=== PATIENT | male | born 1960 | race Caucasian/White ===

== ENCOUNTER 2019-01-30 21:40 | Observation (INO) ==
[2019-01-30 22:18] VITALS: BMI 26.2
--- NOTE | 2019-01-30 22:55 | DR.EXTPAIN ---
HPI Time seen Time Seen by Provider: 01/30/19 22:54 PCP Primary Care Physician: TOOTIE BAUM Complaint/Symptoms Chief Complaint:: " I FELL LASTNIGHT AND IT WAS SURE BUT TODAY IT HAS GOTTEN WORST IM NOT SURE IF I HAVE BROKE SOME RIBS OR WHAT. IM HAVING PAIN IN MY RIGHT RIB AREA." Source History Provided: Patient Mode of arrival Mode of Arrival: Wheelchair Timing Onset of Chief Complaint: 01/29/19 PMH PMH Past Medical History: Yes Past Medical History: CVA, Hypertension and [place] Past Surgical History: Yes Surgical History: CABG/Valve Surgery Past Surgical History Comment: STENTS X2 Family History History of Family Medical Conditions: No Social History Alcohol Use: None Do you use any recreational Drugs:: No infectious screening Have you traveled outside the country in the last 6 months?: No PE Vital Signs Vitals: Temperature 97.1 F Pulse Rate 78 Respiratory Rate 9 Blood Pressure 161/90 O2 Sat by Pulse Oximetry 93 ROR Labs Reviewed Result Diagrams: 01/30/19 22:45 01/30/19 22:45 Laboratory: WBC 9.8 X10^3/uL (3.6-10.0) 01/30/19 22:45 RBC 5.48 X10^6/uL (4.7-6.0) 01/30/19 22:45 Hgb 17.4 g/dL (13.5-18.0) 01/30/19 22:45 Hct 49.9 % (42.0-54.0) 01/30/19 22:45 MCV 91.1 fL (80.0-100.0) 01/30/19 22:45 MCH 31.8 pg (27.0-34.0) 01/30/19 22:45 MCHC 34.9 g/dL (33.0-35.0) 01/30/19 22:45 RDW 14.3 % (11.6-16.5) 01/30/19 22:45 Plt Count 176 X10^3/uL (150.0-450.0) 01/30/19 22:45 MPV 8.3 fL (7.4-11.0) 01/30/19 22:45 Neut % (Auto) 74.5 % (42.0-75.0) 01/30/19 22:45 Lymph % (Auto) 14.2 % (21.0-51.0) L 01/30/19 22:45 [place] % (Auto) 10.0 % (0.0-13.0) 01/30/19 22:45 Eos % (Auto) 1.0 % (0.9-2.9) 01/30/19 22:45 Baso % (Auto) 0.3 % (0.2-1.0) 01/30/19 22:45 Neut # (Auto) 7.3 x10^3/uL (2.2-4.8) H 01/30/19 22:45 Lymph # (Auto) 1.4 X10^3/uL (1.3-2.9) 01/30/19 22:45 [place] # (Auto) 1.0 x10^3/uL (0.3-0.8) H 01/30/19 22:45 Eos # (Auto) 0.1 x10^3/uL (0.0-0.2) 01/30/19 22:45 Baso # (Auto) 0.0 X10^3/uL (0.0-0.1) 01/30/19 22:45 Absolute Nucleated RBC 0.2 /100WBC 01/30/19 22:45 Sodium 139 mmol/L (136-145) 01/30/19 22:45 Corrected Sodium 139 mmol/L (136-145) 01/30/19 22:45 Potassium 4.0 mmol/L (3.5-5.1) 01/30/19 22:45 Chloride 103 mmol/L (98-107) 01/30/19 22:45 Carbon Dioxide 28.5 mmol/L (21-32) 01/30/19 22:45 BUN 8 mg/dL (7-18) 01/30/19 22:45 Creatinine 1.01 mg/dL (0.70-1.30) 01/30/19 22:45 Est GFR (MDRD) Af Amer > 60 (>60) 01/30/19 22:45 Est GFR (MDRD) Non-Af > 60 (>60) 01/30/19 22:45 Glucose 116 mg/dL (65-99) H 01/30/19 22:45 Calcium 9.5 mg/dL (8.5-10.1) 01/30/19 22:45 Corrected Calcium TNP 01/30/19 22:45 Total Bilirubin 0.70 mg/dL (0.2-1.0) 01/30/19 22:45 AST 17 Units/L (15-37) 01/30/19 22:45 ALT 23 Units/L (12-78) 01/30/19 22:45 Alkaline Phosphatase 120 Units/L (46-116) H 01/30/19 22:45 Creatine Kinase 117 Units/L (39-308) 01/30/19 22:45 CK-MB (CK-2) 1.4 ng/mL (0-4.0) 01/30/19 22:45 CK/CKMB % Calc 1.2 % (<4) 01/30/19 22:45 Troponin I < 0.02 ng/mL (0-1.5) 01/30/19 22:45 Total Protein 7.9 g/dL (6.4-8.2) 01/30/19 22:45 Albumin 4.2 g/dL (3.4-5.0) 01/30/19 22:45 Globulin 3.7 g/dL (2.5-4.5) 01/30/19 22:45 Albumin/Globulin Ratio 1.1 Ratio (1.1-2.1) 01/30/19 22:45 Opioid Opioid Risk Tool Total: 0 Total Score Risk Category: Low Risk Copyright: Dez ROQUE predicting aberrant behaviors Instructions Forms: Excuse From Work
[2019-01-30] MEDS ORDERED: MORPHINE SULFATE INJ 4 MG IVP ONE (22:57)
[2019-01-30] MEDS ORDERED: ZOFRAN INJ 4 MG VIAL IVP ONE (22:57)
[2019-01-30 23:06] LABS: BASOPHILS % (AUTO) 0.3 % (0.2-1.0); EOSINOPHILS # (AUTO) 0.1 x10^3/uL (0.0-0.2); HEMATOCRIT 49.9 % (42.0-54.0); HEMOGLOBIN 17.4 g/dL (13.5-18.0); LYMPHOCYTES # (AUTO) 1.4 X10^3/uL (1.3-2.9); LYMPHOCYTES % (AUTO) 14.2 % (21.0-51.0); MEAN CORPUSCULAR HEMOGLOBIN 31.8 pg (27.0-34.0); MEAN CORPUSCULAR HGB CONC 34.9 g/dL (33.0-35.0); MEAN CORPUSCULAR VOLUME 91.1 fL (80.0-100.0); MEAN PLATELET VOLUME 8.3 fL (7.4-11.0); NEUTROPHILS # (AUTO) 7.3 x10^3/uL (2.2-4.8); NEUTROPHILS % (AUTO) 74.5 % (42.0-75.0); PLATELET COUNT 176 X10^3/uL (150.0-450.0); RED BLOOD COUNT 5.48 X10^6/uL (4.7-6.0); RED CELL DISTRIBUTION WIDTH 14.3 % (11.6-16.5); WHITE BLOOD COUNT 9.8 X10^3/uL (3.6-10.0)
[2019-01-30] MEDS ORDERED: NS 100 ML IV 100 ML ONE (23:07)
[2019-01-30] MEDS ORDERED: ZOFRAN INJ 4 MG VIAL ONE (23:08)
[2019-01-30] MEDS ORDERED: MORPHINE SULFATE INJ 4 MG ONE (23:09)
[2019-01-30 23:19] LABS: BLOOD UREA NITROGEN 8 mg/dL (7-18); CALCIUM 9.5 mg/dL (8.5-10.1); CARBON DIOXIDE 28.5 mmol/L (21-32); CHLORIDE 103 mmol/L (98-107); COR NA(FOR HYPERGLY) 139 mmol/L (136-145); CREATININE 1.01 mg/dL (0.70-1.30); SODIUM 139 mmol/L (136-145); TROPONIN I < 0.02 ng/mL (0-1.5); eGFR NON BLACK RACES > 60 (>60)
[2019-01-30 23:23] LABS: ALANINE AMINOTRANSFERASE 23 Units/L (12-78); ALBUMIN 4.2 g/dL (3.4-5.0); ALKALINE PHOSPHATASE 120 Units/L (46-116); ASPARTATE AMINO TRANSFERASE 17 Units/L (15-37); CKMB % 1.2 % (<4); CREATINE KINASE 117 Units/L (39-308); CREATINE KINASE MB 1.4 ng/mL (0-4.0); TOTAL PROTEIN 7.9 g/dL (6.4-8.2)
--- NOTE | 2019-01-31 00:25 | CT ---
CT chest with contrast. Technique: CT chest with contrast. Axial, coronal, and sagittal data sets are submitted. History: Chest pain. Comparison: None. Findings: The thoracic aorta is normal in caliber. 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 The bilateral single renal arteries and the celiac and SMA are widely patent. The great vessels are also patent. There is no central or segmental filling defect within the pulmonary arteries to suggest significant pulmonary embolus. Heart is not enlarged. No pericardial effusion. Visualized portions of the upper abdomen otherwise unremarkable. There is a moderate right-sided pneumothorax. Mildly displaced right 6th and 7th rib fractures are present. There is subcutaneous gas adjacent to the fractures. The lungs are clear of focal consolidation. No pneumothorax on the left. No pleural effusion is seen. DISH like changes are present within the thoracic spine. Conclusion: 1. Occlusion of the infrarenal abdominal aorta just below the level of the renal arteries, of uncertain chronicity. 2. Moderate right-sided pneumothorax related to a mildly displaced right 6th and 7th rib fractures. 3. Additional incidental and chronic findings, as above. Findings were discussed with Dr. Blas by phone within 15 min of observation on 01/30/2019 at 11:24 p.m. DIETITIAN RESEARCH. Reported By:
[2019-01-31] MEDS ORDERED: CATAPRES TAB 0.2 MG ONE (00:32)
[2019-01-31] MEDS ORDERED: CATAPRES TAB 0.2 MG PO ONE (00:35)
--- NOTE | 2019-01-31 00:44 | RAD ---
Examination: Chest, one view. History: Fall, rib pain. Comparison: None. Findings: There is a moderate right pneumothorax. Displaced right 6th and 7th rib fractures are better seen on concurrent CT. Lungs are clear of consolidation. There is no tension component. No acute osseous findings identified. Conclusion: Moderate right pneumothorax without tension component. Critical findings were reported to Dr. Blas by phone. Please see CT exam for details. Reported By:
[2019-01-31] MEDS ORDERED: DILAUDID INJ IVP ONE (01:29)
[2019-01-31] MEDS ORDERED: DILAUDID INJ ONE (01:40)
[2019-01-31 05:51] LABS: BASOPHILS % (AUTO) 0.2 % (0.2-1.0); EOSINOPHILS % (AUTO) 0.2 % (0.9-2.9); HEMATOCRIT 48.3 % (42.0-54.0); HEMOGLOBIN 16.9 g/dL (13.5-18.0); LYMPHOCYTES # (AUTO) 1.3 X10^3/uL (1.3-2.9); LYMPHOCYTES % (AUTO) 13.8 % (21.0-51.0); MEAN CORPUSCULAR HEMOGLOBIN 32.1 pg (27.0-34.0); MEAN CORPUSCULAR VOLUME 91.8 fL (80.0-100.0); MEAN PLATELET VOLUME 8.5 fL (7.4-11.0); MONOCYTES # (AUTO) 0.9 x10^3/uL (0.3-0.8); MONOCYTES % (AUTO) 9.4 % (0.0-13.0); NEUTROPHILS # (AUTO) 7.1 x10^3/uL (2.2-4.8); NEUTROPHILS % (AUTO) 76.4 % (42.0-75.0); PLATELET COUNT 169 X10^3/uL (150.0-450.0); RED BLOOD COUNT 5.27 X10^6/uL (4.7-6.0); RED CELL DISTRIBUTION WIDTH 14.4 % (11.6-16.5); WHITE BLOOD COUNT 9.3 X10^3/uL (3.6-10.0)
[2019-01-31 06:04] LABS: ALANINE AMINOTRANSFERASE 22 Units/L (12-78); ALBUMIN 3.8 g/dL (3.4-5.0); ALKALINE PHOSPHATASE 115 Units/L (46-116); ASPARTATE AMINO TRANSFERASE 17 Units/L (15-37); BLOOD UREA NITROGEN 6 mg/dL (7-18); CARBON DIOXIDE 27.8 mmol/L (21-32); CHLORIDE 105 mmol/L (98-107); CHOLESTEROL 166 mg/dL (0-200); COR NA(FOR HYPERGLY) 140 mmol/L (136-145); CREATININE 0.89 mg/dL (0.70-1.30); HDL CHOLESTEROL 42 mg/dL (40-60); MAGNESIUM 2.2 mg/dL (1.7-2.9); SODIUM 140 mmol/L (136-145); TOTAL PROTEIN 7.5 g/dL (6.4-8.2); TRIGLYCERIDES 55 mg/dL (0-150); eGFR NON BLACK RACES > 60 (>60)
[2019-01-31 06:21] LABS: CKMB % 1.2 % (<4); CREATINE KINASE 102 Units/L (39-308); CREATINE KINASE MB 1.2 ng/mL (0-4.0); TROPONIN I < 0.02 ng/mL (0-1.5)
[2019-01-31] MEDS: DUONEB 0.5 MG/3 MG NEB SCH ×4 (09:17→21:01)
--- NOTE | 2019-01-31 10:39 | DR.H&P ---
H&P - Chief Complaint Chief Complaint: fall, right side chest pain, sob - History of Present Illness History of Present Illness: 58 [facility] ER ADMISSION AFTER PRESENTING WITH CO FALL ON FRIDAY NIGHT WITH RIGHT RIB INJURY. PT HAS STATES PAIN MUCH WORSE YESTERDAY. PT HAS PMH OF HTN, CAD. PT HAD CT CHEST IN ER WITH -Moderate right-sided pneumothorax related to a mildly displaced right 6th and 7th rib fractures. PT ADMITTED TO ICU, PAIN CONTROL, SURGICAL CONSULT. - Past Medical History Past Medical History: Coronary Artery Disease, CVA, Hypertension, [place] - Past Surgical History Surgical History: Angioplasty/Stents, Ortho Surgery - Family History Family Medical History: [place], Hypertension - Social History Does patient currently use any type of tobacco product: Yes Have you used tobacco products in the last 12 months: Yes Type of Tobacco Use: Cigarettes How many years tobacco product used: 25 Does any household member use tobacco: Yes Alcohol Use: Occasionally Drug Use: None - Medications Home Medications: gabapentin Allergy (Verified 01/30/19 22:18) - Review of Systems Constitutional: No Symptoms Reported Eyes: No Symptoms Reported ENT: No Symptoms Reported Respiratory: Shortness of Breath, SOB with Excertion Cardiovascular: Chest Pain Gastrointestinal: No Symptoms Reported Genitourinary: No Symptoms Reported Musculoskeletal: Back Pain, Other (RIGHT RIB PAIN) Skin: No Symptoms Reported Neurological: No Symptoms Reported - Physical Exam Vital Signs: Temperature 97.2 F Pulse Rate [Brachial] 85 Pulse Rate 85 Respiratory Rate 15 Blood Pressure [Right Arm] 135/71 Blood Pressure 128/78 O2 Sat by Pulse Oximetry 2 Oriented: Normal Eyes: Normal Ear: Normal Nose: Normal Throat: Normal Respiratory: Wheezes Throughout (EXPIRATORY WHEEZES), RML Diminished, RLL Diminished, LLL Diminished Cardiovascular: Normal : Normal Auscultation: Bowel Sounds: Normal Palpation: Normal Tenderness: Normal Skin: Normal Musculoskeletal: Right, Back:Lumbar, Swelling, Tender Psychiatric: Normal Speech Pattern: Clear, Appropriate - Assessment/Plan (1) Closed traumatic displaced fracture of rib Status: Acute Plan: ADMIT, PAIN CONTROL. SUPPLEMENTAL O2, RESP CONSULT. DR BURNS CONSULTED, REPEAT AM CXR. VERIFY HOME MEDICATION, IV HYDRATION. CARDIAC MO NITORING (2) Pneumothorax Status: Acute (3) CAD (coronary artery disease) Status: Acute (4) Spine degeneration Status: Acute - Allergies Allergies/Adverse Reactions: Allergies Allergy/AdvReac Type Severity Reaction Status Date / Time gabapentin Allergy Verified 01/30/19 22:18
[2019-01-31] MEDS: DILAUDID INJ IVP PRN ×2 (10:40→20:41)
[2019-01-31 11:47] LABS: CKMB % 1.4 % (<4); CREATINE KINASE 94 Units/L (39-308); CREATINE KINASE MB 1.3 ng/mL (0-4.0); TROPONIN I < 0.02 ng/mL (0-1.5)
--- NOTE | 2019-01-31 12:08 | DR.PROGNOT ---
Hospital Progress Notes - Progress Note for Day of: Progress Note Date: 01/31/19 - Chief Complaint Chief Complaint: moderate SOB and Rt chest pain from rib Fx . no abdominal pain . stable VS . - Past Medical Family Social History Past Med/Fam/Surg Hx: No changes since H&P Allergies: Allergies gabapentin Allergy (Verified 01/30/19 22:18) - Review Of Systems ROS: No change since H&P - Vital Signs Vital Signs: Temperature 97.2 F Pulse Rate [Brachial] 79 Pulse Rate 91 Respiratory Rate 14 Blood Pressure [Right Arm] 121/68 Blood Pressure 121/68 O2 Sat by Pulse Oximetry 3 - Physical Exam Oriented: Normal Eyes: Normal Ear: Normal Nose: Normal Throat: Normal Respiratory: OTHER (very tender rt chest wall with diminished BS on Rt and bilateral rhonchi and mild wheezing .) Cardiovascular: Normal : Normal GI:Auscultation: Normal GI:Palpation: Normal GI: Tenderness: Normal, Other (soft abdomen , non tender . very weak Rt femoral pulse . positive signal only with doppler .) Skin: Normal Musculoskeletal: Back:Lumbar, Swelling Psychiatric: Normal Speech Pattern: Clear, Appropriate - Laboratory and Diagnostics Result Diagrams: 01/31/19 05:18 01/31/19 05:18 Labs: Laboratory WBC 9.3 X10^3/uL (3.6-10.0) 01/31/19 05:18 RBC 5.27 X10^6/uL (4.7-6.0) 01/31/19 05:18 Hgb 16.9 g/dL (13.5-18.0) 01/31/19 05:18 Hct 48.3 % (42.0-54.0) 01/31/19 05:18 MCV 91.8 fL (80.0-100.0) 01/31/19 05:18 MCH 32.1 pg (27.0-34.0) 01/31/19 05:18 MCHC 35.0 g/dL (33.0-35.0) 01/31/19 05:18 RDW 14.4 % (11.6-16.5) 01/31/19 05:18 Plt Count 169 X10^3/uL (150.0-450.0) 01/31/19 05:18 MPV 8.5 fL (7.4-11.0) 01/31/19 05:18 Neut % (Auto) 76.4 % (42.0-75.0) H 01/31/19 05:18 Lymph % (Auto) 13.8 % (21.0-51.0) L 01/31/19 05:18 [place] % (Auto) 9.4 % (0.0-13.0) 01/31/19 05:18 Eos % (Auto) 0.2 % (0.9-2.9) L 01/31/19 05:18 Baso % (Auto) 0.2 % (0.2-1.0) 01/31/19 05:18 Neut # (Auto) 7.1 x10^3/uL (2.2-4.8) H 01/31/19 05:18 Lymph # (Auto) 1.3 X10^3/uL (1.3-2.9) 01/31/19 05:18 [place] # (Auto) 0.9 x10^3/uL (0.3-0.8) H 01/31/19 05:18 Eos # (Auto) 0.0 x10^3/uL (0.0-0.2) 01/31/19 05:18 Baso # (Auto) 0.0 X10^3/uL (0.0-0.1) 01/31/19 05:18 Absolute Nucleated RBC 0.0 /100WBC 01/31/19 05:18 Sodium 140 mmol/L (136-145) 01/31/19 05:18 Corrected Sodium 140 mmol/L (136-145) 01/31/19 05:18 Potassium 4.4 mmol/L (3.5-5.1) 01/31/19 05:18 Chloride 105 mmol/L (98-107) 01/31/19 05:18 Carbon Dioxide 27.8 mmol/L (21-32) 01/31/19 05:18 BUN 6 mg/dL (7-18) L 01/31/19 05:18 Creatinine 0.89 mg/dL (0.70-1.30) 01/31/19 05:18 Est GFR (MDRD) Af Amer > 60 (>60) 01/31/19 05:18 Est GFR (MDRD) Non-Af > 60 (>60) 01/31/19 05:18 Glucose 112 mg/dL (65-99) H 01/31/19 05:18 Calcium 9.0 mg/dL (8.5-10.1) 01/31/19 05:18 Corrected Calcium TNP 01/31/19 05:18 Magnesium 2.2 mg/dL (1.7-2.9) 01/31/19 05:18 Total Bilirubin 0.60 mg/dL (0.2-1.0) 01/31/19 05:18 AST 17 Units/L (15-37) 01/31/19 05:18 ALT 22 Units/L (12-78) 01/31/19 05:18 Alkaline Phosphatase 115 Units/L (46-116) 01/31/19 05:18 Creatine Kinase 94 Units/L (39-308) 01/31/19 11:20 CK-MB (CK-2) 1.3 ng/mL (0-4.0) 01/31/19 11:20 CK/CKMB % Calc 1.4 % (<4) 01/31/19 11:20 Troponin I < 0.02 ng/mL (0-1.5) 01/31/19 11:20 Total Protein 7.5 g/dL (6.4-8.2) 01/31/19 05:18 Albumin 3.8 g/dL (3.4-5.0) 01/31/19 05:18 Globulin 3.7 g/dL (2.5-4.5) 01/31/19 05:18 Albumin/Globulin Ratio 1.0 Ratio (1.1-2.1) L 01/31/19 05:18 Triglycerides 55 mg/dL (0-150) 01/31/19 05:18 Cholesterol 166 mg/dL (0-200) 01/31/19 05:18 LDL Cholesterol, Calc 113 mg/dL (0-100) H 01/31/19 05:18 HDL Cholesterol 42 mg/dL (40-60) 01/31/19 05:18 Cholesterol/HDL Ratio 4.0 (0.0-5.0) 01/31/19 05:18 - Assessment and Plan 1: blunt trauma Rt chest with 6th and 7th rib Fx . Rt pneumothorax . CAD and previous [place] s/p stenting . chronic back pain with degenerative disc disease . smoker . same plan , repeat chest xray , pain control . chest tube if needed . 2: PVD and intermittent claudication . 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
[2019-01-31] MEDS ORDERED: NS 500 ML IV 500 ML ONE (12:55)
[2019-01-31] MEDS: LOVENOX INJ 40 MG SYR SC SCH (13:21)
[2019-01-31] MEDS: LEVAQUIN PREMIX IV 500 MG 500 MG/100 ML BAG IV SCH (13:22)
--- NOTE | 2019-01-31 14:18 | RAD ---
HISTORY: Fall, rib pain Study: Single-view chest Comparison: Yesterday Findings: The trachea is midline. The cardiac silhouette is unremarkable. The lungs demonstrate enlarging right-sided pneumothorax with no shift of the mediastinum at this time. Subcutaneous emphysema is also noted.. The bony thorax is unremarkable. IMPRESSION: 1. Enlarging [id number] pneumothorax as above. Surgical consultation and chest tube placement may be needed.. Reported By:
[2019-01-31 15:09] LABS: BILIRUBIN,URINE NEGATIVE (NEGATIVE); BLOOD/HEMOGLOBIN,URINE NEGATIVE (NEGATIVE); GLUCOSE, URINE NEGATIVE (NEGATIVE); KETONES,URINE NEGATIVE (NEGATIVE); LEUKOCYTE ESTERASE ,URINE 1+ (NEGATIVE); NITRITES,URINE NEGATIVE (NEGATIVE); PROTEIN,URINE 2+ (NEGATIVE); UROBILINOGEN,URINE 1+ (NORMAL)
[2019-01-31 15:21] LABS: APPEARANCE,URINE CLEAR (CLEAR); COLOR,URINE YELLOW (YELLOW)
[2019-01-31 15:25] LABS: AMORPHOUS SEDIMENT,UR TRACE /HPF (NEGATIVE); BACTERIA,URINE NEGATIVE /HPF (NEGATIVE); MUCUS,URINE MODERATE /HPF (NEGATIVE); RBC,URINE 0-2 /HPF (NONE SEEN); SQUAMOUS EPITHELIAL CELL,UR RARE /HPF (NEGATIVE)
[2019-02-01] MEDS: DILAUDID INJ IVP PRN ×5 (00:12→22:49)
[2019-02-01] MEDS: DUONEB 0.5 MG/3 MG NEB SCH ×6 (01:05→21:18)
[2019-02-01 04:55] LABS: BASOPHILS % (AUTO) 0.2 % (0.2-1.0); EOSINOPHILS # (AUTO) 0.1 x10^3/uL (0.0-0.2); EOSINOPHILS % (AUTO) 1.3 % (0.9-2.9); HEMATOCRIT 45.1 % (42.0-54.0); HEMOGLOBIN 15.4 g/dL (13.5-18.0); LYMPHOCYTES # (AUTO) 1.6 X10^3/uL (1.3-2.9); LYMPHOCYTES % (AUTO) 20.2 % (21.0-51.0); MEAN CORPUSCULAR HEMOGLOBIN 31.6 pg (27.0-34.0); MEAN CORPUSCULAR HGB CONC 34.1 g/dL (33.0-35.0); MEAN CORPUSCULAR VOLUME 92.6 fL (80.0-100.0); MEAN PLATELET VOLUME 8.4 fL (7.4-11.0); MONOCYTES # (AUTO) 0.8 x10^3/uL (0.3-0.8); MONOCYTES % (AUTO) 9.7 % (0.0-13.0); NEUTROPHILS # (AUTO) 5.3 x10^3/uL (2.2-4.8); NEUTROPHILS % (AUTO) 68.6 % (42.0-75.0); PLATELET COUNT 156 X10^3/uL (150.0-450.0); RED BLOOD COUNT 4.87 X10^6/uL (4.7-6.0); RED CELL DISTRIBUTION WIDTH 14.2 % (11.6-16.5); WHITE BLOOD COUNT 7.8 X10^3/uL (3.6-10.0)
[2019-02-01 05:05] LABS: ALANINE AMINOTRANSFERASE 18 Units/L (12-78); ALBUMIN 3.2 g/dL (3.4-5.0); ALKALINE PHOSPHATASE 99 Units/L (46-116); ASPARTATE AMINO TRANSFERASE 11 Units/L (15-37); BLOOD UREA NITROGEN 7 mg/dL (7-18); CALCIUM 8.9 mg/dL (8.5-10.1); CARBON DIOXIDE 32.1 mmol/L (21-32); CHLORIDE 102 mmol/L (98-107); COR CA(FOR HYPOALB) 9.5 mg/dL (8.5-10.1); CREATININE 0.98 mg/dL (0.70-1.30); SODIUM 138 mmol/L (136-145); TOTAL PROTEIN 6.6 g/dL (6.4-8.2); eGFR NON BLACK RACES > 60 (>60)
--- NOTE | 2019-02-01 05:41 | RAD ---
Chest radiograph, single view. History: Pneumothorax. Comparison: 01/31/2019 radiograph. Findings: Moderate to large right pneumothorax is stable in size from prior examination. There is no shift of the mediastinum at this time. Subcutaneous emphysema is again noted. No new lung consolidation. No pleural effusion is seen. Right-sided 4th and 5th rib fractures are better seen on prior CT. Conclusion: Stable moderate to large right pneumothorax. No tension component detected at this time. Recommendations of surgical consultation and chest tube placement are unchanged. Reported By:
[2019-02-01] MEDS: LEVAQUIN PREMIX IV 500 MG 500 MG/100 ML BAG IV SCH (08:38)
[2019-02-01] MEDS: LOVENOX INJ 40 MG SYR SC SCH (08:43)
--- NOTE | 2019-02-01 11:26 | DR.PROGNOT ---
Hospital Progress Notes - Progress Note for Day of: Progress Note Date: 02/01/19 - Chief Complaint Chief Complaint: Rt chest pain from rib Fx .no SOB. no abdominal pain . stable VS . chest xray same as yesterday . - Past Medical Family Social History Past Med/Fam/Surg Hx: No changes since H&P Allergies: Allergies gabapentin Allergy (Verified 01/30/19 22:18) - Review Of Systems ROS: No change since H&P - Vital Signs Vital Signs: Temperature 98.2 F Pulse Rate [Brachial] 79 Pulse Rate 97 Respiratory Rate 14 Blood Pressure [Right Arm] 121/68 Blood Pressure 125/59 O2 Sat by Pulse Oximetry 98 - Physical Exam Oriented: Normal Eyes: Normal Ear: Normal Nose: Normal Throat: Normal Respiratory: OTHER (very tender rt chest wall with diminished BS on Rt and bilateral rhonchi and mild wheezing .) Cardiovascular: Normal : Normal GI:Auscultation: Normal GI:Palpation: Normal GI: Tenderness: Normal, Other (soft abdomen , non tender . very weak Rt femoral pulse . positive signal only with doppler .) Skin: Normal Musculoskeletal: Back:Lumbar, Swelling Psychiatric: Normal Speech Pattern: Clear, Appropriate - Laboratory and Diagnostics Result Diagrams: 02/01/19 04:18 02/01/19 04:18 Labs: Laboratory WBC 7.8 X10^3/uL (3.6-10.0) 02/01/19 04:18 RBC 4.87 X10^6/uL (4.7-6.0) 02/01/19 04:18 Hgb 15.4 g/dL (13.5-18.0) 02/01/19 04:18 Hct 45.1 % (42.0-54.0) 02/01/19 04:18 MCV 92.6 fL (80.0-100.0) 02/01/19 04:18 MCH 31.6 pg (27.0-34.0) 02/01/19 04:18 MCHC 34.1 g/dL (33.0-35.0) 02/01/19 04:18 RDW 14.2 % (11.6-16.5) 02/01/19 04:18 Plt Count 156 X10^3/uL (150.0-450.0) 02/01/19 04:18 MPV 8.4 fL (7.4-11.0) 02/01/19 04:18 Neut % (Auto) 68.6 % (42.0-75.0) 02/01/19 04:18 Lymph % (Auto) 20.2 % (21.0-51.0) L 02/01/19 04:18 [place] % (Auto) 9.7 % (0.0-13.0) 02/01/19 04:18 Eos % (Auto) 1.3 % (0.9-2.9) 02/01/19 04:18 Baso % (Auto) 0.2 % (0.2-1.0) 02/01/19 04:18 Neut # (Auto) 5.3 x10^3/uL (2.2-4.8) H 02/01/19 04:18 Lymph # (Auto) 1.6 X10^3/uL (1.3-2.9) 02/01/19 04:18 [place] # (Auto) 0.8 x10^3/uL (0.3-0.8) 02/01/19 04:18 Eos # (Auto) 0.1 x10^3/uL (0.0-0.2) 02/01/19 04:18 Baso # (Auto) 0.0 X10^3/uL (0.0-0.1) 02/01/19 04:18 Absolute Nucleated RBC 0.0 /100WBC 02/01/19 04:18 Sodium 138 mmol/L (136-145) 02/01/19 04:18 Corrected Sodium TNP 02/01/19 04:18 Potassium 4.2 mmol/L (3.5-5.1) 02/01/19 04:18 Chloride 102 mmol/L (98-107) 02/01/19 04:18 Carbon Dioxide 32.1 mmol/L (21-32) H 02/01/19 04:18 BUN 7 mg/dL (7-18) 02/01/19 04:18 Creatinine 0.98 mg/dL (0.70-1.30) 02/01/19 04:18 Est GFR (MDRD) Af Amer > 60 (>60) 02/01/19 04:18 Est GFR (MDRD) Non-Af > 60 (>60) 02/01/19 04:18 Glucose 98 mg/dL (65-99) 02/01/19 04:18 Calcium 8.9 mg/dL (8.5-10.1) 02/01/19 04:18 Corrected Calcium 9.5 mg/dL (8.5-10.1) 02/01/19 04:18 Magnesium 2.2 mg/dL (1.7-2.9) 01/31/19 05:18 Total Bilirubin 0.70 mg/dL (0.2-1.0) 02/01/19 04:18 AST 11 Units/L (15-37) L 02/01/19 04:18 ALT 18 Units/L (12-78) 02/01/19 04:18 Alkaline Phosphatase 99 Units/L (46-116) 02/01/19 04:18 Creatine Kinase 94 Units/L (39-308) 01/31/19 11:20 CK-MB (CK-2) 1.3 ng/mL (0-4.0) 01/31/19 11:20 CK/CKMB % Calc 1.4 % (<4) 01/31/19 11:20 Troponin I < 0.02 ng/mL (0-1.5) 01/31/19 11:20 Total Protein 6.6 g/dL (6.4-8.2) 02/01/19 04:18 Albumin 3.2 g/dL (3.4-5.0) L 02/01/19 04:18 Globulin 3.4 g/dL (2.5-4.5) 02/01/19 04:18 Albumin/Globulin Ratio 0.9 Ratio (1.1-2.1) L 02/01/19 04:18 Triglycerides 55 mg/dL (0-150) 01/31/19 05:18 Cholesterol 166 mg/dL (0-200) 01/31/19 05:18 LDL Cholesterol, Calc 113 mg/dL (0-100) H 01/31/19 05:18 HDL Cholesterol 42 mg/dL (40-60) 01/31/19 05:18 Cholesterol/HDL Ratio 4.0 (0.0-5.0) 01/31/19 05:18 Specimen Type Random urine 01/31/19 14:51 Urine Color Yellow (YELLOW) 01/31/19 14:51 Urine Appearance Clear (CLEAR) 01/31/19 14:51 Urine pH 5.0 (5.0 - 8.0) 01/31/19 14:51 Ur Specific [place] 1.020 (1.000-1.030) 01/31/19 14:51 Urine Protein 2+ (NEGATIVE) 01/31/19 14:51 Urine Glucose (UA) Negative (NEGATIVE) 01/31/19 14:51 Urine Ketones Negative (NEGATIVE) 01/31/19 14:51 Urine Occult Blood Negative (NEGATIVE) 01/31/19 14:51 Urine Nitrite Negative (NEGATIVE) 01/31/19 14:51 Urine Bilirubin Negative (NEGATIVE) 01/31/19 14:51 Urine Urobilinogen 1+ (NORMAL) 01/31/19 14:51 Ur Leukocyte Esterase 1+ (NEGATIVE) 01/31/19 14:51 Urine RBC 0-2 /HPF (NONE SEEN) 01/31/19 14:51 Urine WBC None seen /HPF (NONE SEEN) 01/31/19 14:51 Ur Squamous Epith Cells Rare /HPF (NEGATIVE) 01/31/19 14:51 Amorphous Sediment Trace /HPF (NEGATIVE) 01/31/19 14:51 Urine Bacteria Negative /HPF (NEGATIVE) 01/31/19 14:51 Urine Mucus Moderate /HPF (NEGATIVE) 01/31/19 14:51 Ur Culture Indicated? No/not indicated 01/31/19 14:51 - Assessment and Plan 1: blunt trauma Rt chest with two rib Fx. Rt pneumothorax . CAD and previous [place] s/p stenting . chronic back pain with degenerative disc disease . 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 smoker . same plan , repeat chest xray , pain control . chest tube if needed . 2: PVD and intermittent claudication . 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
[2019-02-01 14:18] LABS: ABG ALLEN TEST POS; ABG BASE EXCESS 4.3 mmol/L (-2.0-2.0); ABG HCO3 29.8 mmol/L (22-26)
[2019-02-01] MEDS: ZOFRAN INJ 4 MG VIAL IVP PRN ×2 (14:44→22:51)
--- NOTE | 2019-02-01 16:43 | CT ---
HISTORY: Lower back pain after fall Study: CT lumbar spine without contrast Comparison: Chest CT 01/30/2019 Technique: Multiple axial images of the lumbar spine without the administration of IV contrast. Sagittal and coronal reformats were performed and reviewed. Dose reduction techniques including Automated Exposure Control (AEC) and adjustment of mA and kV were utilized. Findings: Alignment of the lumbar spine is maintained. No evidence for acute fracture or subluxation identified. Small Schmorl's nodes are seen at the superior endplate of T12, inferior endplate of L1 without evidence of compression fracture. There is a limbus vertebra at the superior anterior endplate of L5. Multilevel spondylosis is present with disc space narrowing at L1-L2. There are mild facet degenerative changes at L4-5 and L5-S1 without listhesis. Redemonstrated right pneumothorax and pleural effusion with subcutaneous gas in the posterior right chest wall. IMPRESSION: 1. No acute osseous abnormality of the lumbar spine. 2. Redemonstrated right hydropneumothorax. Reported By:
--- NOTE | 2019-02-01 17:26 | PCM.PROG ---
Progress Note - Progress Note for Day of Date of Exam: 02/01/19 - Subjective Subjective: 58 WM ER ADMISSION ON 01/31 WITH ACUTE RIGHT RIB FRACTURES WITH RIGHT PNEUMOTHORAX. PT HAD REPEAT CXR THIS AM, UNCHANGES BUT DENIES SOB. PT CONTINUES TO CO PAIN, CURRENTLY ON IV DILAUDID FOR PAIN CONTROL. CURRENTLY ON SUPPLEMENTAL O2, DUO NEBS AND IV LEVAQUIN PT HAD HAS CAD, AND CHRONIC PAD. PT IS CURRENTY ON PLAVIX AND LOVENON PROPHALAXIS. PT CO LOWER BACK PAIN, WORSE WITH AMBULATION. CT L SPINE ORDERED FOR TODAY. - Past Medical Family Social History Past Med/Fam/Surg Hx: No changes since H&P Allergies: Allergies gabapentin Allergy (Verified 01/30/19 22:18) - Review of Systems ROS: No change since H&P - Vital Signs and I&O's Vital Signs: Temperature 98.2 F Pulse Rate [Brachial] 79 Pulse Rate 85 Respiratory Rate 17 Blood Pressure [Right Arm] 121/68 Blood Pressure 157/96 O2 Sat by Pulse Oximetry 98 Intake and Output: Intake & Output 01/30/19 01/31/19 02/01/19 02/02/19 11:59 11:59 11:59 11:59 Intake Total 450 / 450 1310 / 1310 Output Total 850 / 850 Balance 450 / 450 460 / 460 - Physical Exam Oriented: Normal Eyes: Normal Ear: Normal Nose: Normal Throat: Normal Respiratory: Diminished, OTHER (very tender rt chest wall with diminished BS on Rt and bilateral rhonchi and mild wheezing .) Cardiovascular: Normal : Normal Auscultation: Bowel Sounds: Normal Tenderness: Normal, Other (soft abdomen , non tender . very weak Rt femoral pulse . positive signal only with doppler .) Skin: Normal Musculoskeletal: Back:Lumbar, Swelling Psychiatric: Normal Speech Pattern: Clear, Appropriate - Laboratory and Diagnostics Result Diagrams: 02/01/19 04:18 02/01/19 04:18 Labs: Laboratory WBC 7.8 X10^3/uL (3.6-10.0) 02/01/19 04:18 RBC 4.87 X10^6/uL (4.7-6.0) 02/01/19 04:18 Hgb 15.4 g/dL (13.5-18.0) 02/01/19 04:18 Hct 45.1 % (42.0-54.0) 02/01/19 04:18 MCV 92.6 fL (80.0-100.0) 02/01/19 04:18 MCH 31.6 pg (27.0-34.0) 02/01/19 04:18 MCHC 34.1 g/dL (33.0-35.0) 02/01/19 04:18 RDW 14.2 % (11.6-16.5) 02/01/19 04:18 Plt Count 156 X10^3/uL (150.0-450.0) 02/01/19 04:18 MPV 8.4 fL (7.4-11.0) 02/01/19 04:18 Neut % (Auto) 68.6 % (42.0-75.0) 02/01/19 04:18 Lymph % (Auto) 20.2 % (21.0-51.0) L 02/01/19 04:18 [place] % (Auto) 9.7 % (0.0-13.0) 02/01/19 04:18 Eos % (Auto) 1.3 % (0.9-2.9) 02/01/19 04:18 Baso % (Auto) 0.2 % (0.2-1.0) 02/01/19 04:18 Neut # (Auto) 5.3 x10^3/uL (2.2-4.8) H 02/01/19 04:18 Lymph # (Auto) 1.6 X10^3/uL (1.3-2.9) 02/01/19 04:18 [place] # (Auto) 0.8 x10^3/uL (0.3-0.8) 02/01/19 04:18 Eos # (Auto) 0.1 x10^3/uL (0.0-0.2) 02/01/19 04:18 Baso # (Auto) 0.0 X10^3/uL (0.0-0.1) 02/01/19 04:18 Absolute Nucleated RBC 0.0 /100WBC 02/01/19 04:18 Sample Site Rr 02/01/19 14:07 ABG pH 7.410 (7.35-7.45) 02/01/19 14:07 ABG pCO2 47.0 mmHg (35.0-45.0) H 02/01/19 14:07 ABG pO2 63.0 mmHg (80.0-100.0) L 02/01/19 14:07 ABG HCO3 29.8 mmol/L (22-26) H 02/01/19 14:07 ABG O2 Saturation 92.0 % (90-100) 02/01/19 14:07 ABG Base Excess 4.3 mmol/L (-2.0-2.0) H 02/01/19 14:07 Wan Test Pos 02/01/19 14:07 A-a Gradient 106.0 mmHg 02/01/19 14:07 FiO2 32.0 02/01/19 14:07 Blood Gas Comments Ricky well cb 02/01/19 14:07 Sodium 138 mmol/L (136-145) 02/01/19 04:18 Corrected Sodium TNP 02/01/19 04:18 Potassium 4.2 mmol/L (3.5-5.1) 02/01/19 04:18 Chloride 102 mmol/L (98-107) 02/01/19 04:18 Carbon Dioxide 32.1 mmol/L (21-32) H 02/01/19 04:18 BUN 7 mg/dL (7-18) 02/01/19 04:18 Creatinine 0.98 mg/dL (0.70-1.30) 02/01/19 04:18 Est GFR (MDRD) Af Amer > 60 (>60) 02/01/19 04:18 Est GFR (MDRD) Non-Af > 60 (>60) 02/01/19 04:18 Glucose 98 mg/dL (65-99) 02/01/19 04:18 Calcium 8.9 mg/dL (8.5-10.1) 02/01/19 04:18 Corrected Calcium 9.5 mg/dL (8.5-10.1) 02/01/19 04:18 Magnesium 2.2 mg/dL (1.7-2.9) 01/31/19 05:18 Total Bilirubin 0.70 mg/dL (0.2-1.0) 02/01/19 04:18 AST 11 Units/L (15-37) L 02/01/19 04:18 ALT 18 Units/L (12-78) 02/01/19 04:18 Alkaline Phosphatase 99 Units/L (46-116) 02/01/19 04:18 Creatine Kinase 94 Units/L (39-308) 01/31/19 11:20 CK-MB (CK-2) 1.3 ng/mL (0-4.0) 01/31/19 11:20 CK/CKMB % Calc 1.4 % (<4) 01/31/19 11:20 Troponin I < 0.02 ng/mL (0-1.5) 01/31/19 11:20 Total Protein 6.6 g/dL (6.4-8.2) 02/01/19 04:18 Albumin 3.2 g/dL (3.4-5.0) L 02/01/19 04:18 Globulin 3.4 g/dL (2.5-4.5) 02/01/19 04:18 Albumin/Globulin Ratio 0.9 Ratio (1.1-2.1) L 02/01/19 04:18 Triglycerides 55 mg/dL (0-150) 01/31/19 05:18 Cholesterol 166 mg/dL (0-200) 01/31/19 05:18 LDL Cholesterol, Calc 113 mg/dL (0-100) H 01/31/19 05:18 HDL Cholesterol 42 mg/dL (40-60) 01/31/19 05:18 Cholesterol/HDL Ratio 4.0 (0.0-5.0) 01/31/19 05:18 Specimen Type Random urine 01/31/19 14:51 Urine Color Yellow (YELLOW) 01/31/19 14:51 Urine Appearance Clear (CLEAR) 01/31/19 14:51 Urine pH 5.0 (5.0 - 8.0) 01/31/19 14:51 Ur Specific [place] 1.020 (1.000-1.030) 01/31/19 14:51 Urine Protein 2+ (NEGATIVE) 01/31/19 14:51 Urine Glucose (UA) Negative (NEGATIVE) 01/31/19 14:51 Urine Ketones Negative (NEGATIVE) 01/31/19 14:51 Urine Occult Blood Negative (NEGATIVE) 01/31/19 14:51 Urine Nitrite Negative (NEGATIVE) 01/31/19 14:51 Urine Bilirubin Negative (NEGATIVE) 01/31/19 14:51 Urine Urobilinogen 1+ (NORMAL) 01/31/19 14:51 Ur Leukocyte Esterase 1+ (NEGATIVE) 01/31/19 14:51 Urine RBC 0-2 /HPF (NONE SEEN) 01/31/19 14:51 Urine WBC None seen /HPF (NONE SEEN) 01/31/19 14:51 Ur Squamous Epith Cells Rare /HPF (NEGATIVE) 01/31/19 14:51 Amorphous Sediment Trace /HPF (NEGATIVE) 01/31/19 14:51 Urine Bacteria Negative /HPF (NEGATIVE) 01/31/19 14:51 Urine Mucus Moderate /HPF (NEGATIVE) 01/31/19 14:51 Ur Culture Indicated? No/not indicated 01/31/19 14:51 - Plan (1) Closed traumatic displaced fracture of rib Status: Acute Plan: PAIN CONTROL. SUPPLEMENTAL O2, RESP CONSULT. DR BURNS CONSULTED, REPEAT AM CXR. RESUMED HOME MEDICATION, IV HYDRATION. CARDIAC MONITORING (2) Pneumothorax Status: Acute (3) CAD (coronary artery disease) Status: Acute (4) Spine degeneration Status: Acute (5) PAD (peripheral artery disease) Status: Acute Plan: PLAVIX, LOVENOX, BP AND LIPID CONTROL
[2019-02-01] MEDS: ZESTRIL TAB 5 MG PO SCH (17:50)
[2019-02-01] MEDS: ASPIRIN 81 MG CHEWTAB PO SCH (17:50)
[2019-02-01] MEDS: PLAVIX PO SCH (17:50)
[2019-02-01] MEDS: LOPRESSOR TAB 25 MG PO SCH ×2 (17:51→21:49)
[2019-02-01] MEDS: MILK OF MAGNESIA PO SCH (22:49)
[2019-02-01] MEDS: COLACE CAP 100 MG PO SCH (22:51)
[2019-02-01] MEDS ORDERED: COLACE CAP 100 MG PO ONE (22:52)
[2019-02-02] MEDS: DUONEB 0.5 MG/3 MG NEB SCH ×7 (01:43→20:59)
--- NOTE | 2019-02-02 05:15 | RAD ---
Chest radiograph, single view. History: Pneumothorax. Comparison: 02/01/2019. Findings: Stable moderately large right-sided pneumothorax. No discrete shifting of the mediastinum is seen. There is stable subcutaneous emphysema. Right-sided rib fractures are better seen on prior CT. No acute osseous findings. Conclusion: Stable moderately large right-sided pneumothorax without tension component at this time. Recommendations of surgical consultation and consideration for chest tube placement are unchanged. Reported By:
[2019-02-02 05:41] LABS: BASOPHILS % (AUTO) 0.2 % (0.2-1.0); EOSINOPHILS % (AUTO) 0.4 % (0.9-2.9); HEMOGLOBIN 15.7 g/dL (13.5-18.0); LYMPHOCYTES # (AUTO) 1.3 X10^3/uL (1.3-2.9); MEAN CORPUSCULAR HEMOGLOBIN 31.6 pg (27.0-34.0); MEAN CORPUSCULAR HGB CONC 34.8 g/dL (33.0-35.0); MEAN CORPUSCULAR VOLUME 90.9 fL (80.0-100.0); MONOCYTES # (AUTO) 0.7 x10^3/uL (0.3-0.8); NEUTROPHILS # (AUTO) 6.9 x10^3/uL (2.2-4.8); NEUTROPHILS % (AUTO) 76.4 % (42.0-75.0); PLATELET COUNT 166 X10^3/uL (150.0-450.0); RED BLOOD COUNT 4.96 X10^6/uL (4.7-6.0); RED CELL DISTRIBUTION WIDTH 14.4 % (11.6-16.5)
[2019-02-02 05:54] LABS: ALANINE AMINOTRANSFERASE 20 Units/L (12-78); ALBUMIN 3.4 g/dL (3.4-5.0); ALKALINE PHOSPHATASE 97 Units/L (46-116); ASPARTATE AMINO TRANSFERASE 24 Units/L (15-37); BLOOD UREA NITROGEN 7 mg/dL (7-18); CALCIUM 9.3 mg/dL (8.5-10.1); CHLORIDE 99 mmol/L (98-107); SODIUM 138 mmol/L (136-145); TOTAL PROTEIN 7.3 g/dL (6.4-8.2); eGFR NON BLACK RACES > 60 (>60)
[2019-02-02] MEDS: PLAVIX PO SCH (08:26)
[2019-02-02] MEDS: ASPIRIN 81 MG CHEWTAB PO SCH (08:26)
[2019-02-02] MEDS: LOPRESSOR TAB 25 MG PO SCH ×2 (08:27→21:02)
[2019-02-02] MEDS: ZESTRIL TAB 5 MG PO SCH (08:27)
[2019-02-02] MEDS: MILK OF MAGNESIA PO SCH ×2 (08:28→21:02)
[2019-02-02] MEDS: LOVENOX INJ 40 MG SYR SC SCH (08:29)
[2019-02-02] MEDS: LEVAQUIN PREMIX IV 500 MG 500 MG/100 ML BAG IV SCH (08:30)
[2019-02-02] MEDS: DILAUDID INJ IVP PRN (08:30)
[2019-02-02] MEDS ORDERED: NORCO 7.5/325 MG TAB PO PRN (09:17)
--- NOTE | 2019-02-02 09:39 | DR.PROGNOT ---
Hospital Progress Notes - Progress Note for Day of: Progress Note Date: 02/02/19 - Chief Complaint Chief Complaint: chest pain is less . no SOB and Po2 is 98%. chest xray stable pneumothorax .no infiltrate or hemothorax . stable VS. - Past Medical Family Social History Past Med/Fam/Surg Hx: No changes since H&P Allergies: Allergies gabapentin Allergy (Verified 01/30/19 22:18) - Review Of Systems ROS: No change since H&P - Vital Signs Vital Signs: Temperature 98.3 F Pulse Rate [Brachial] 79 Pulse Rate 74 Respiratory Rate 13 Blood Pressure [Right Arm] 121/68 Blood Pressure 143/79 O2 Sat by Pulse Oximetry 99 - Physical Exam Oriented: Normal Eyes: Normal Ear: Normal Nose: Normal Throat: Normal Respiratory: Diminished, OTHER (very tender rt chest wall with diminished BS on Rt and bilateral rhonchi and mild wheezing .) Cardiovascular: Normal : Normal GI:Auscultation: Normal GI:Palpation: Normal GI: Tenderness: Normal, Other (soft abdomen , non tender . very weak Rt femoral pulse . positive signal only with doppler .) Skin: Normal Musculoskeletal: Back:Lumbar, Swelling Psychiatric: Normal Speech Pattern: Clear - Laboratory and Diagnostics Result Diagrams: 02/02/19 04:17 02/02/19 04:17 Labs: Laboratory WBC 9.0 X10^3/uL (3.6-10.0) 02/02/19 04:17 RBC 4.96 X10^6/uL (4.7-6.0) 02/02/19 04:17 Hgb 15.7 g/dL (13.5-18.0) 02/02/19 04:17 Hct 45.0 % (42.0-54.0) 02/02/19 04:17 MCV 90.9 fL (80.0-100.0) 02/02/19 04:17 MCH 31.6 pg (27.0-34.0) 02/02/19 04:17 MCHC 34.8 g/dL (33.0-35.0) 02/02/19 04:17 RDW 14.4 % (11.6-16.5) 02/02/19 04:17 Plt Count 166 X10^3/uL (150.0-450.0) 02/02/19 04:17 MPV 8.0 fL (7.4-11.0) 02/02/19 04:17 Neut % (Auto) 76.4 % (42.0-75.0) H 02/02/19 04:17 Lymph % (Auto) 15.0 % (21.0-51.0) L 02/02/19 04:17 [place] % (Auto) 8.0 % (0.0-13.0) 02/02/19 04:17 Eos % (Auto) 0.4 % (0.9-2.9) L 02/02/19 04:17 Baso % (Auto) 0.2 % (0.2-1.0) 02/02/19 04:17 Neut # (Auto) 6.9 x10^3/uL (2.2-4.8) H 02/02/19 04:17 Lymph # (Auto) 1.3 X10^3/uL (1.3-2.9) 02/02/19 04:17 [place] # (Auto) 0.7 x10^3/uL (0.3-0.8) 02/02/19 04:17 Eos # (Auto) 0.0 x10^3/uL (0.0-0.2) 02/02/19 04:17 Baso # (Auto) 0.0 X10^3/uL (0.0-0.1) 02/02/19 04:17 Absolute Nucleated RBC 0.0 /100WBC 02/02/19 04:17 Sample Site Rr 02/01/19 14:07 ABG pH 7.410 (7.35-7.45) 02/01/19 14:07 ABG pCO2 47.0 mmHg (35.0-45.0) H 02/01/19 14:07 ABG pO2 63.0 mmHg (80.0-100.0) L 02/01/19 14:07 ABG HCO3 29.8 mmol/L (22-26) H 02/01/19 14:07 ABG O2 Saturation 92.0 % (90-100) 02/01/19 14:07 ABG Base Excess 4.3 mmol/L (-2.0-2.0) H 02/01/19 14:07 Wan Test Pos 02/01/19 14:07 A-a Gradient 106.0 mmHg 02/01/19 14:07 FiO2 32.0 02/01/19 14:07 Blood Gas Comments Ricky well cb 02/01/19 14:07 Sodium 138 mmol/L (136-145) 02/02/19 04:17 Corrected Sodium TNP 02/02/19 04:17 Potassium 4.1 mmol/L (3.5-5.1) 02/02/19 04:17 Chloride 99 mmol/L (98-107) 02/02/19 04:17 Carbon Dioxide 33.0 mmol/L (21-32) H 02/02/19 04:17 BUN 7 mg/dL (7-18) 02/02/19 04:17 Creatinine 0.90 mg/dL (0.70-1.30) 02/02/19 04:17 Est GFR (MDRD) Af Amer > 60 (>60) 02/02/19 04:17 Est GFR (MDRD) Non-Af > 60 (>60) 02/02/19 04:17 Glucose 93 mg/dL (65-99) 02/02/19 04:17 Calcium 9.3 mg/dL (8.5-10.1) 02/02/19 04:17 Corrected Calcium TNP 02/02/19 04:17 Magnesium 2.2 mg/dL (1.7-2.9) 01/31/19 05:18 Total Bilirubin 0.70 mg/dL (0.2-1.0) 02/02/19 04:17 AST 24 Units/L (15-37) 02/02/19 04:17 ALT 20 Units/L (12-78) 02/02/19 04:17 Alkaline Phosphatase 97 Units/L (46-116) 02/02/19 04:17 Creatine Kinase 94 Units/L (39-308) 01/31/19 11:20 CK-MB (CK-2) 1.3 ng/mL (0-4.0) 01/31/19 11:20 CK/CKMB % Calc 1.4 % (<4) 01/31/19 11:20 Troponin I < 0.02 ng/mL (0-1.5) 01/31/19 11:20 Total Protein 7.3 g/dL (6.4-8.2) 02/02/19 04:17 Albumin 3.4 g/dL (3.4-5.0) 02/02/19 04:17 Globulin 3.9 g/dL (2.5-4.5) 02/02/19 04:17 Albumin/Globulin Ratio 0.9 Ratio (1.1-2.1) L 02/02/19 04:17 Triglycerides 55 mg/dL (0-150) 01/31/19 05:18 Cholesterol 166 mg/dL (0-200) 01/31/19 05:18 LDL Cholesterol, Calc 113 mg/dL (0-100) H 01/31/19 05:18 HDL Cholesterol 42 mg/dL (40-60) 01/31/19 05:18 Cholesterol/HDL Ratio 4.0 (0.0-5.0) 01/31/19 05:18 Specimen Type Random urine 01/31/19 14:51 Urine Color Yellow (YELLOW) 01/31/19 14:51 Urine Appearance Clear (CLEAR) 01/31/19 14:51 Urine pH 5.0 (5.0 - 8.0) 01/31/19 14:51 Ur Specific [place] 1.020 (1.000-1.030) 01/31/19 14:51 Urine Protein 2+ (NEGATIVE) 01/31/19 14:51 Urine Glucose (UA) Negative (NEGATIVE) 01/31/19 14:51 Urine Ketones Negative (NEGATIVE) 01/31/19 14:51 Urine Occult Blood Negative (NEGATIVE) 01/31/19 14:51 Urine Nitrite Negative (NEGATIVE) 01/31/19 14:51 Urine Bilirubin Negative (NEGATIVE) 01/31/19 14:51 Urine Urobilinogen 1+ (NORMAL) 01/31/19 14:51 Ur Leukocyte Esterase 1+ (NEGATIVE) 01/31/19 14:51 Urine RBC 0-2 /HPF (NONE SEEN) 01/31/19 14:51 Urine WBC None seen /HPF (NONE SEEN) 01/31/19 14:51 Ur Squamous Epith Cells Rare /HPF (NEGATIVE) 01/31/19 14:51 Amorphous Sediment Trace /HPF (NEGATIVE) 01/31/19 14:51 Urine Bacteria Negative /HPF (NEGATIVE) 01/31/19 14:51 Urine Mucus Moderate /HPF (NEGATIVE) 01/31/19 14:51 Ur Culture Indicated? No/not indicated 01/31/19 14:51 - Assessment and Plan 1: blunt trauma Rt chest with two rib Fx. Rt pneumothorax (stable). CAD and previous [place] s/p stenting . chronic back pain with degenerative disc disease . 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 smoker . same plan , repeat chest xray , pain control . chest tube if needed . 2: PVD and intermittent claudication . 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
[2019-02-02] MEDS: NICOTINE PATCH TD SCH (14:31)
[2019-02-02] MEDS ORDERED: XANAX PO PRN (15:50)
[2019-02-02] MEDS: COLACE CAP 100 MG PO SCH (21:02)
[2019-02-03] MEDS: DUONEB 0.5 MG/3 MG NEB SCH ×7 (01:15→21:06)
[2019-02-03 04:58] LABS: BASOPHILS % (AUTO) 0.2 % (0.2-1.0); EOSINOPHILS # (AUTO) 0.1 x10^3/uL (0.0-0.2); EOSINOPHILS % (AUTO) 1.7 % (0.9-2.9); HEMATOCRIT 43.9 % (42.0-54.0); HEMOGLOBIN 15.5 g/dL (13.5-18.0); LYMPHOCYTES # (AUTO) 1.4 X10^3/uL (1.3-2.9); MEAN CORPUSCULAR HEMOGLOBIN 32.3 pg (27.0-34.0); MEAN CORPUSCULAR HGB CONC 35.3 g/dL (33.0-35.0); MEAN CORPUSCULAR VOLUME 91.6 fL (80.0-100.0); MEAN PLATELET VOLUME 8.1 fL (7.4-11.0); MONOCYTES # (AUTO) 0.7 x10^3/uL (0.3-0.8); NEUTROPHILS # (AUTO) 4.7 x10^3/uL (2.2-4.8); NEUTROPHILS % (AUTO) 68.1 % (42.0-75.0); PLATELET COUNT 160 X10^3/uL (150.0-450.0); RED BLOOD COUNT 4.79 X10^6/uL (4.7-6.0); RED CELL DISTRIBUTION WIDTH 14.5 % (11.6-16.5); WHITE BLOOD COUNT 6.9 X10^3/uL (3.6-10.0)
[2019-02-03 05:03] LABS: ALANINE AMINOTRANSFERASE 20 Units/L (12-78); ALBUMIN 3.4 g/dL (3.4-5.0); ALKALINE PHOSPHATASE 87 Units/L (46-116); ASPARTATE AMINO TRANSFERASE 22 Units/L (15-37); BLOOD UREA NITROGEN 8 mg/dL (7-18); CALCIUM 8.6 mg/dL (8.5-10.1); CARBON DIOXIDE 33.2 mmol/L (21-32); CHLORIDE 101 mmol/L (98-107); CREATININE 0.92 mg/dL (0.70-1.30); SODIUM 140 mmol/L (136-145); eGFR NON BLACK RACES > 60 (>60)
--- NOTE | 2019-02-03 06:19 | RAD ---
HISTORY: Follow-up pneumothorax Study: Chest AP portable Comparison: 02/02/2019 Findings: The heart is within normal limits in size. The isatu are normal. A moderately large right pneumothorax remains however it appears decreased somewhat when compared with the prior examination. Mediastinal position is unchanged. Subcutaneous emphysema is present along the right lateral chest wall and right neck. The isatu are normal. Abnormal parenchymal density is present in the medial right lung base which could represent atelectasis infiltrate or contusion. The remainder of the lung [place] are clear. The patient's known right rib fractures are unchanged. Surgical consultation if not already obtained should be considered in order to determine if tube treatment is indicated. IMPRESSION: Moderately large but slightly decreased right pneumothorax when compared with the prior examination Abnormal parenchymal density in the medial right lung base representing atelectasis, infiltrate or contusion Reported By:
[2019-02-03] MEDS: ZESTRIL TAB 5 MG PO SCH (09:34)
[2019-02-03] MEDS: MILK OF MAGNESIA PO SCH ×2 (09:35→21:01)
[2019-02-03] MEDS: NICOTINE PATCH TD SCH (09:35)
[2019-02-03] MEDS: LOVENOX INJ 40 MG SYR SC SCH (09:35)
[2019-02-03] MEDS: LEVAQUIN PREMIX IV 500 MG 500 MG/100 ML BAG IV SCH (09:36)
[2019-02-03] MEDS: PLAVIX PO SCH (09:37)
[2019-02-03] MEDS: ASPIRIN 81 MG CHEWTAB PO SCH (09:37)
[2019-02-03] MEDS: LOPRESSOR TAB 25 MG PO SCH ×2 (09:38→20:57)
--- NOTE | 2019-02-03 11:36 | DR.PROGNOT ---
Hospital Progress Notes - Progress Note for Day of: Progress Note Date: 02/03/19 - Chief Complaint Chief Complaint: chest pain is less . no SOB and Po2 is 98%. chest xray stable pneumothorax, no infiltrate or hemothorax . stable VS. - Past Medical Family Social History Past Med/Fam/Surg Hx: No changes since H&P Allergies: Allergies gabapentin Allergy (Verified 01/30/19 22:18) - Review Of Systems ROS: No change since H&P - Vital Signs Vital Signs: Temperature 97.6 F Pulse Rate [Brachial] 79 Pulse Rate 76 Respiratory Rate 14 Blood Pressure [Right Arm] 121/68 Blood Pressure 144/84 O2 Sat by Pulse Oximetry 99 - Physical Exam Oriented: Normal Eyes: Normal Ear: Normal Nose: Normal Throat: Normal Respiratory: Diminished, OTHER (very tender rt chest wall with diminished BS on Rt and bilateral rhonchi and mild wheezing .) Cardiovascular: Normal : Normal GI:Auscultation: Normal GI:Palpation: Normal GI: Tenderness: Normal, Other (soft abdomen , non tender . very weak Rt femoral pulse . positive signal only with doppler .) Skin: Normal Musculoskeletal: Back:Lumbar, Swelling Psychiatric: Normal Speech Pattern: Clear, Appropriate - Laboratory and Diagnostics Result Diagrams: 02/03/19 04:18 02/03/19 04:18 Labs: Laboratory WBC 6.9 X10^3/uL (3.6-10.0) 02/03/19 04:18 RBC 4.79 X10^6/uL (4.7-6.0) 02/03/19 04:18 Hgb 15.5 g/dL (13.5-18.0) 02/03/19 04:18 Hct 43.9 % (42.0-54.0) 02/03/19 04:18 MCV 91.6 fL (80.0-100.0) 02/03/19 04:18 MCH 32.3 pg (27.0-34.0) 02/03/19 04:18 MCHC 35.3 g/dL (33.0-35.0) H 02/03/19 04:18 RDW 14.5 % (11.6-16.5) 02/03/19 04:18 Plt Count 160 X10^3/uL (150.0-450.0) 02/03/19 04:18 MPV 8.1 fL (7.4-11.0) 02/03/19 04:18 Neut % (Auto) 68.1 % (42.0-75.0) 02/03/19 04:18 Lymph % (Auto) 20.0 % (21.0-51.0) L 02/03/19 04:18 [place] % (Auto) 10.0 % (0.0-13.0) 02/03/19 04:18 Eos % (Auto) 1.7 % (0.9-2.9) 02/03/19 04:18 Baso % (Auto) 0.2 % (0.2-1.0) 02/03/19 04:18 Neut # (Auto) 4.7 x10^3/uL (2.2-4.8) 02/03/19 04:18 Lymph # (Auto) 1.4 X10^3/uL (1.3-2.9) 02/03/19 04:18 [place] # (Auto) 0.7 x10^3/uL (0.3-0.8) 02/03/19 04:18 Eos # (Auto) 0.1 x10^3/uL (0.0-0.2) 02/03/19 04:18 Baso # (Auto) 0.0 X10^3/uL (0.0-0.1) 02/03/19 04:18 Absolute Nucleated RBC 0.0 /100WBC 02/03/19 04:18 Sample Site Rr 02/01/19 14:07 ABG pH 7.410 (7.35-7.45) 02/01/19 14:07 ABG pCO2 47.0 mmHg (35.0-45.0) H 02/01/19 14:07 ABG pO2 63.0 mmHg (80.0-100.0) L 02/01/19 14:07 ABG HCO3 29.8 mmol/L (22-26) H 02/01/19 14:07 ABG O2 Saturation 92.0 % (90-100) 02/01/19 14:07 ABG Base Excess 4.3 mmol/L (-2.0-2.0) H 02/01/19 14:07 Wan Test Pos 02/01/19 14:07 A-a Gradient 106.0 mmHg 02/01/19 14:07 FiO2 32.0 02/01/19 14:07 Blood Gas Comments Ricky well cb 02/01/19 14:07 Sodium 140 mmol/L (136-145) 02/03/19 04:18 Corrected Sodium TNP 02/03/19 04:18 Potassium 3.8 mmol/L (3.5-5.1) 02/03/19 04:18 Chloride 101 mmol/L (98-107) 02/03/19 04:18 Carbon Dioxide 33.2 mmol/L (21-32) H 02/03/19 04:18 BUN 8 mg/dL (7-18) 02/03/19 04:18 Creatinine 0.92 mg/dL (0.70-1.30) 02/03/19 04:18 Est GFR (MDRD) Af Amer > 60 (>60) 02/03/19 04:18 Est GFR (MDRD) Non-Af > 60 (>60) 02/03/19 04:18 Glucose 94 mg/dL (65-99) 02/03/19 04:18 Calcium 8.6 mg/dL (8.5-10.1) 02/03/19 04:18 Corrected Calcium TNP 02/03/19 04:18 Magnesium 2.6 mg/dL (1.7-2.9) 02/03/19 04:18 Total Bilirubin 0.60 mg/dL (0.2-1.0) 02/03/19 04:18 AST 22 Units/L (15-37) 02/03/19 04:18 ALT 20 Units/L (12-78) 02/03/19 04:18 Alkaline Phosphatase 87 Units/L (46-116) 02/03/19 04:18 Creatine Kinase 94 Units/L (39-308) 01/31/19 11:20 CK-MB (CK-2) 1.3 ng/mL (0-4.0) 01/31/19 11:20 CK/CKMB % Calc 1.4 % (<4) 01/31/19 11:20 Troponin I < 0.02 ng/mL (0-1.5) 01/31/19 11:20 Total Protein 7.0 g/dL (6.4-8.2) 02/03/19 04:18 Albumin 3.4 g/dL (3.4-5.0) 02/03/19 04:18 Globulin 3.6 g/dL (2.5-4.5) 02/03/19 04:18 Albumin/Globulin Ratio 0.9 Ratio (1.1-2.1) L 02/03/19 04:18 Triglycerides 55 mg/dL (0-150) 01/31/19 05:18 Cholesterol 166 mg/dL (0-200) 01/31/19 05:18 LDL Cholesterol, Calc 113 mg/dL (0-100) H 01/31/19 05:18 HDL Cholesterol 42 mg/dL (40-60) 01/31/19 05:18 Cholesterol/HDL Ratio 4.0 (0.0-5.0) 01/31/19 05:18 Specimen Type Random urine 01/31/19 14:51 Urine Color Yellow (YELLOW) 01/31/19 14:51 Urine Appearance Clear (CLEAR) 01/31/19 14:51 Urine pH 5.0 (5.0 - 8.0) 01/31/19 14:51 Ur Specific [place] 1.020 (1.000-1.030) 01/31/19 14:51 Urine Protein 2+ (NEGATIVE) 01/31/19 14:51 Urine Glucose (UA) Negative (NEGATIVE) 01/31/19 14:51 Urine Ketones Negative (NEGATIVE) 01/31/19 14:51 Urine Occult Blood Negative (NEGATIVE) 01/31/19 14:51 Urine Nitrite Negative (NEGATIVE) 01/31/19 14:51 Urine Bilirubin Negative (NEGATIVE) 01/31/19 14:51 Urine Urobilinogen 1+ (NORMAL) 01/31/19 14:51 Ur Leukocyte Esterase 1+ (NEGATIVE) 01/31/19 14:51 Urine RBC 0-2 /HPF (NONE SEEN) 01/31/19 14:51 Urine WBC None seen /HPF (NONE SEEN) 01/31/19 14:51 Ur Squamous Epith Cells Rare /HPF (NEGATIVE) 01/31/19 14:51 Amorphous Sediment Trace /HPF (NEGATIVE) 01/31/19 14:51 Urine Bacteria Negative /HPF (NEGATIVE) 01/31/19 14:51 Urine Mucus Moderate /HPF (NEGATIVE) 01/31/19 14:51 Ur Culture Indicated? No/not indicated 01/31/19 14:51 - Assessment and Plan 1: blunt trauma Rt chest with rib Fx. Rt pneumothorax (stable). CAD and previous [place] s/p stenting . chronic back pain with degenerative disc disease . 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 smoker . same plan , repeat chest xray , pain control . 2: PVD and intermittent claudication . 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
--- NOTE | 2019-02-03 17:33 | CT ---
CT chest with contrast Indication: Right pneumothorax, rule out infiltrate, contusion Technique: Helical CT images of the chest were obtained with IV contrast. Reformatted images in the coronal and sagittal planes were also generated for review. Comparison: CT chest 01/30/2019 and chest radiograph from same day Findings: Mildly displaced fractures of the right lateral 6th and 7th ribs again noted. No new osseous abnormality is identified. There is a large (approximately 50%) right-sided pneumothorax with complete associated atelectasis of the right middle lobe and near complete atelectasis of the right lower lobe. Evaluation for underlying contusion or infiltrate of the right and middle lobes is severely limited secondary to atelectasis. The right upper lobe and left lung remain clear. A trace right pleural effusion is noted. There is subcutaneous emphysema of the right chest wall. No rightward shift of the heart or mediastinum is present to suggest tension pneumothorax. The heart and mediastinum are unremarkable. No pericardial effusion or mediastinal hematoma. The thoracic aorta and proximal great vessels are normal in contour and caliber. Major central airways are patent. There is no mediastinal or hilar lymphadenopathy. Limited images through the upper abdomen demonstrate occlusion of the infrarenal abdominal aorta, unchanged. Impression: Large (approximately 50%) right-sided pneumothorax with trace associated pleural effusion and complete atelectasis of the right middle lobe and near complete atelectasis of the right lower lobe. No current findings to suggest tension pneumothorax. Evaluation for infiltrate or contusion of the right middle and lower lobes is severely limited secondary to atelectasis, although the remainder of the aerated lungs are clear. Stable minimally displaced fractures of the right 6th and 7th ribs and slightly worsening subcutaneous emphysema of the right chest wall. Stable occlusion of the infrarenal abdominal aorta. Reported By:
[2019-02-03] MEDS ORDERED: LASIX IVP ONE (17:56)
--- NOTE | 2019-02-03 17:59 | PCM.PROG ---
Progress Note - Progress Note for Day of Date of Exam: 02/03/19 - Subjective Subjective: 58 WM ER ADMISSION ON 01/31 WITH ACUTE RIGHT RIB FRACTURES WITH RIGHT PNEUMOTHORAX, FOLLOWED BY DR BURNS. PT CONTINUES TO CO PAIN, CURRENTLY ON IV DILAUDID FOR PAIN CONTROL. CURRENTLY ON SUPPLEMENTAL O2, DUO NEBS AND IV LEVAQUIN PT HAD HAS CAD, AND CHRONIC PAD. PT IS CURRENTY ON PLAVIX AND LOVENON PROPHALAXIS. CT CHEST THIS AM REVEALED:Large (approximately 50%) right-sided pneumothorax with trace associated pleural. effusion and complete atelectasis of the right middle lobe and near complete. atelectasis of the right lower lobe. No current findings to suggest tension. pneumothorax. Evaluation for infiltrate or contusion of the right middle and lower lobes is. severely limited secondary to atelectasis, although the remainder of the aerated lungs are clear. Stable minimally displaced fractures of the right 6th and 7th ribs and slightly. worsening subcutaneous emphysema of the right chest wall. - Past Medical Family Social History Past Med/Fam/Surg Hx: No changes since H&P Allergies: Allergies gabapentin Allergy (Verified 01/30/19 22:18) - Review of Systems ROS: No change since H&P - Vital Signs and I&O's Vital Signs: Temperature 98.2 F Pulse Rate [Brachial] 79 Pulse Rate 88 Respiratory Rate 20 Blood Pressure [Right Arm] 121/68 Blood Pressure 151/94 O2 Sat by Pulse Oximetry 100 Intake and Output: Intake & Output 02/01/19 02/02/19 02/03/19 02/04/19 11:59 11:59 11:59 11:59 Intake Total 1310 / 1310 170 / 170 1206 / 1206 669 / 669 Output Total 850 / 850 400 / 400 4 / 4 Balance 460 / 460 170 / 170 806 / 806 665 / 665 - Physical Exam Oriented: Normal Eyes: Normal Ear: Normal Nose: Normal Throat: Normal Respiratory: Diminished, OTHER (very tender rt chest wall with diminished BS on Rt and bilateral rhonchi and mild wheezing .) Cardiovascular: Normal : Normal Auscultation: Bowel Sounds: Normal Tenderness: Normal, Other (soft abdomen , non tender . very weak Rt femoral pulse . positive signal only with doppler .) Skin: Normal Musculoskeletal: Back:Lumbar, Swelling Psychiatric: Normal Speech Pattern: Clear, Appropriate - Laboratory and Diagnostics Result Diagrams: 02/03/19 04:18 02/03/19 04:18 Labs: Laboratory WBC 6.9 X10^3/uL (3.6-10.0) 02/03/19 04:18 RBC 4.79 X10^6/uL (4.7-6.0) 02/03/19 04:18 Hgb 15.5 g/dL (13.5-18.0) 02/03/19 04:18 Hct 43.9 % (42.0-54.0) 02/03/19 04:18 MCV 91.6 fL (80.0-100.0) 02/03/19 04:18 MCH 32.3 pg (27.0-34.0) 02/03/19 04:18 MCHC 35.3 g/dL (33.0-35.0) H 02/03/19 04:18 RDW 14.5 % (11.6-16.5) 02/03/19 04:18 Plt Count 160 X10^3/uL (150.0-450.0) 02/03/19 04:18 MPV 8.1 fL (7.4-11.0) 02/03/19 04:18 Neut % (Auto) 68.1 % (42.0-75.0) 02/03/19 04:18 Lymph % (Auto) 20.0 % (21.0-51.0) L 02/03/19 04:18 [place] % (Auto) 10.0 % (0.0-13.0) 02/03/19 04:18 Eos % (Auto) 1.7 % (0.9-2.9) 02/03/19 04:18 Baso % (Auto) 0.2 % (0.2-1.0) 02/03/19 04:18 Neut # (Auto) 4.7 x10^3/uL (2.2-4.8) 02/03/19 04:18 Lymph # (Auto) 1.4 X10^3/uL (1.3-2.9) 02/03/19 04:18 [place] # (Auto) 0.7 x10^3/uL (0.3-0.8) 02/03/19 04:18 Eos # (Auto) 0.1 x10^3/uL (0.0-0.2) 02/03/19 04:18 Baso # (Auto) 0.0 X10^3/uL (0.0-0.1) 02/03/19 04:18 Absolute Nucleated RBC 0.0 /100WBC 02/03/19 04:18 Sample Site Rr 02/01/19 14:07 ABG pH 7.410 (7.35-7.45) 02/01/19 14:07 ABG pCO2 47.0 mmHg (35.0-45.0) H 02/01/19 14:07 ABG pO2 63.0 mmHg (80.0-100.0) L 02/01/19 14:07 ABG HCO3 29.8 mmol/L (22-26) H 02/01/19 14:07 ABG O2 Saturation 92.0 % (90-100) 02/01/19 14:07 ABG Base Excess 4.3 mmol/L (-2.0-2.0) H 02/01/19 14:07 Wan Test Pos 02/01/19 14:07 A-a Gradient 106.0 mmHg 02/01/19 14:07 FiO2 32.0 02/01/19 14:07 Blood Gas Comments Ricky well cb 02/01/19 14:07 Sodium 140 mmol/L (136-145) 02/03/19 04:18 Corrected Sodium TNP 02/03/19 04:18 Potassium 3.8 mmol/L (3.5-5.1) 02/03/19 04:18 Chloride 101 mmol/L (98-107) 02/03/19 04:18 Carbon Dioxide 33.2 mmol/L (21-32) H 02/03/19 04:18 BUN 8 mg/dL (7-18) 02/03/19 04:18 Creatinine 0.92 mg/dL (0.70-1.30) 02/03/19 04:18 Est GFR (MDRD) Af Amer > 60 (>60) 02/03/19 04:18 Est GFR (MDRD) Non-Af > 60 (>60) 02/03/19 04:18 Glucose 94 mg/dL (65-99) 02/03/19 04:18 Calcium 8.6 mg/dL (8.5-10.1) 02/03/19 04:18 Corrected Calcium TNP 02/03/19 04:18 Magnesium 2.6 mg/dL (1.7-2.9) 02/03/19 04:18 Total Bilirubin 0.60 mg/dL (0.2-1.0) 02/03/19 04:18 AST 22 Units/L (15-37) 02/03/19 04:18 ALT 20 Units/L (12-78) 02/03/19 04:18 Alkaline Phosphatase 87 Units/L (46-116) 02/03/19 04:18 Creatine Kinase 94 Units/L (39-308) 01/31/19 11:20 CK-MB (CK-2) 1.3 ng/mL (0-4.0) 01/31/19 11:20 CK/CKMB % Calc 1.4 % (<4) 01/31/19 11:20 Troponin I < 0.02 ng/mL (0-1.5) 01/31/19 11:20 Total Protein 7.0 g/dL (6.4-8.2) 02/03/19 04:18 Albumin 3.4 g/dL (3.4-5.0) 02/03/19 04:18 Globulin 3.6 g/dL (2.5-4.5) 02/03/19 04:18 Albumin/Globulin Ratio 0.9 Ratio (1.1-2.1) L 02/03/19 04:18 Triglycerides 55 mg/dL (0-150) 01/31/19 05:18 Cholesterol 166 mg/dL (0-200) 01/31/19 05:18 LDL Cholesterol, Calc 113 mg/dL (0-100) H 01/31/19 05:18 HDL Cholesterol 42 mg/dL (40-60) 01/31/19 05:18 Cholesterol/HDL Ratio 4.0 (0.0-5.0) 01/31/19 05:18 Specimen Type Random urine 01/31/19 14:51 Urine Color Yellow (YELLOW) 01/31/19 14:51 Urine Appearance Clear (CLEAR) 01/31/19 14:51 Urine pH 5.0 (5.0 - 8.0) 01/31/19 14:51 Ur Specific [place] 1.020 (1.000-1.030) 01/31/19 14:51 Urine Protein 2+ (NEGATIVE) 01/31/19 14:51 Urine Glucose (UA) Negative (NEGATIVE) 01/31/19 14:51 Urine Ketones Negative (NEGATIVE) 01/31/19 14:51 Urine Occult Blood Negative (NEGATIVE) 01/31/19 14:51 Urine Nitrite Negative (NEGATIVE) 01/31/19 14:51 Urine Bilirubin Negative (NEGATIVE) 01/31/19 14:51 Urine Urobilinogen 1+ (NORMAL) 01/31/19 14:51 Ur Leukocyte Esterase 1+ (NEGATIVE) 01/31/19 14:51 Urine RBC 0-2 /HPF (NONE SEEN) 01/31/19 14:51 Urine WBC None seen /HPF (NONE SEEN) 01/31/19 14:51 Ur Squamous Epith Cells Rare /HPF (NEGATIVE) 01/31/19 14:51 Amorphous Sediment Trace /HPF (NEGATIVE) 01/31/19 14:51 Urine Bacteria Negative /HPF (NEGATIVE) 01/31/19 14:51 Urine Mucus Moderate /HPF (NEGATIVE) 01/31/19 14:51 Ur Culture Indicated? No/not indicated 01/31/19 14:51 - Plan (1) Closed traumatic displaced fracture of rib Status: Acute Plan: PAIN CONTROL. SUPPLEMENTAL O2, RESP CONSULT. DR BURNS CONSULTED, REPEAT AM CXR. RESUMED HOME MEDICATION, IV HYDRATION. CARDIAC MONITORING (2) Pneumothorax Status: Acute (3) CAD (coronary artery disease) Status: Acute (4) Spine degeneration Status: Acute (5) PAD (peripheral artery disease) Status: Acute Plan: PLAVIX, LOVENOX, BP AND LIPID CONTROL
[2019-02-03] MEDS ORDERED: POTASSIUM CHL 60 MEQ/NS 0.45% 500 ML IV PRN (18:03)
[2019-02-03] MEDS ORDERED: MICRO K EXTEN CAP 10 MEQ PO PRN (18:03)
[2019-02-03] MEDS ORDERED: KLOR-CON PO PRN (18:03)
[2019-02-03] MEDS ORDERED: POTASSIUM CHLORIDE LIQ 20 MEQ UDC PO PRN (18:03)
[2019-02-03] MEDS ORDERED: POTASSIUM CHL 40 MEQ/NS 0.45% 500 ML IV PRN (18:03)
[2019-02-03] MEDS ORDERED: K-DUR TAB 20 MEQ PO PRN (18:03)
[2019-02-03] MEDS ORDERED: K-RIDER 10 MEQ/NS 100 ML 10 MEQ/100 ML BAG IV PRN (18:03)
[2019-02-03] MEDS: COLACE CAP 100 MG PO SCH (20:57)
[2019-02-04] MEDS: DUONEB 0.5 MG/3 MG NEB SCH ×4 (01:13→12:24)
[2019-02-04 04:49] LABS: BASOPHILS % (AUTO) 0.3 % (0.2-1.0); EOSINOPHILS # (AUTO) 0.2 x10^3/uL (0.0-0.2); EOSINOPHILS % (AUTO) 1.6 % (0.9-2.9); HEMATOCRIT 47.5 % (42.0-54.0); HEMOGLOBIN 16.7 g/dL (13.5-18.0); LYMPHOCYTES # (AUTO) 1.5 X10^3/uL (1.3-2.9); LYMPHOCYTES % (AUTO) 14.6 % (21.0-51.0); MEAN CORPUSCULAR HEMOGLOBIN 32.1 pg (27.0-34.0); MEAN CORPUSCULAR HGB CONC 35.1 g/dL (33.0-35.0); MEAN CORPUSCULAR VOLUME 91.5 fL (80.0-100.0); MEAN PLATELET VOLUME 8.1 fL (7.4-11.0); MONOCYTES # (AUTO) 0.8 x10^3/uL (0.3-0.8); MONOCYTES % (AUTO) 7.8 % (0.0-13.0); NEUTROPHILS # (AUTO) 7.6 x10^3/uL (2.2-4.8); NEUTROPHILS % (AUTO) 75.7 % (42.0-75.0); PLATELET COUNT 166 X10^3/uL (150.0-450.0); RED CELL DISTRIBUTION WIDTH 14.2 % (11.6-16.5); WHITE BLOOD COUNT 10.1 X10^3/uL (3.6-10.0)
[2019-02-04 05:02] LABS: ALANINE AMINOTRANSFERASE 24 Units/L (12-78); ALBUMIN 3.7 g/dL (3.4-5.0); ALKALINE PHOSPHATASE 97 Units/L (46-116); ASPARTATE AMINO TRANSFERASE 24 Units/L (15-37); BLOOD UREA NITROGEN 10 mg/dL (7-18); CARBON DIOXIDE 27.8 mmol/L (21-32); CHLORIDE 100 mmol/L (98-107); CREATININE 0.99 mg/dL (0.70-1.30); SODIUM 137 mmol/L (136-145); TOTAL PROTEIN 7.7 g/dL (6.4-8.2); eGFR NON BLACK RACES > 60 (>60)
--- NOTE | 2019-02-04 06:08 | RAD ---
HISTORY: Follow-up pneumothorax Study: Chest AP portable Comparison: 02/03/2019 plain film and chest CT Findings: The heart is within normal limits in size. The isatu are normal. There has been a small increase in the size of the patient's large right pneumothorax. There is no significant change in the position of the heart mediastinal structures since the prior examination. Increased density remains in the medial right lung base likely representing atelectasis and contusion. The remainder of the lung melton are clear. The patient's known right rib fractures are not well demonstrated. There is subcutaneous emphysema right lateral chest wall and right neck. IMPRESSION: Slight increase in the large right pneumothorax being followed but with no significant change in the mediastinum No change right medial basal atelectasis and contusion Subcutaneous emphysema right chest wall, right neck Reported By:
[2019-02-04] MEDS: LOVENOX INJ 40 MG SYR SC SCH (08:59)
[2019-02-04] MEDS: LEVAQUIN PREMIX IV 500 MG 500 MG/100 ML BAG IV SCH (08:59)
[2019-02-04] MEDS: LOPRESSOR TAB 25 MG PO SCH (09:00)
[2019-02-04] MEDS: ASPIRIN 81 MG CHEWTAB PO SCH (09:01)
[2019-02-04] MEDS: NICOTINE PATCH TD SCH (09:01)
[2019-02-04] MEDS: PLAVIX PO SCH (09:01)
[2019-02-04] MEDS: ZESTRIL TAB 5 MG PO SCH (09:01)
[2019-02-04] MEDS: MILK OF MAGNESIA PO SCH (09:02)
[2019-02-04 11:53] VITALS: BP 137/88
--- NOTE | 2019-02-04 12:45 | DR.PROGNOT ---
Hospital Progress Notes - Progress Note for Day of: Progress Note Date: 02/04/19 - Chief Complaint Chief Complaint: chest pain is less . no SOB and Po2 is 98%. chest xray stable pneumothorax, no infiltrate or hemothorax . stable VS. - Past Medical Family Social History Past Med/Fam/Surg Hx: No changes since H&P Allergies: Allergies gabapentin Allergy (Verified 01/30/19 22:18) - Review Of Systems ROS: No change since H&P - Vital Signs Vital Signs: Temperature 98.2 F Pulse Rate [Brachial] 79 Pulse Rate 87 Respiratory Rate 22 Blood Pressure [Right Arm] 121/68 Blood Pressure 137/88 O2 Sat by Pulse Oximetry 96 - Physical Exam Oriented: Normal Eyes: Normal Ear: Normal Nose: Normal Throat: Normal Respiratory: Diminished, OTHER (very tender rt chest wall with diminished BS on Rt and bilateral rhonchi and mild wheezing .) Cardiovascular: Normal : Normal GI:Auscultation: Normal GI:Palpation: Normal GI: Tenderness: Normal, Other (soft abdomen , non tender . very weak Rt femoral pulse . positive signal only with doppler .) Skin: Normal Musculoskeletal: Back:Lumbar, Swelling Psychiatric: Normal Speech Pattern: Clear, Appropriate - Laboratory and Diagnostics Result Diagrams: 02/04/19 04:26 02/04/19 04:26 Labs: Laboratory WBC 10.1 X10^3/uL (3.6-10.0) H 02/04/19 04:26 RBC 5.20 X10^6/uL (4.7-6.0) 02/04/19 04:26 Hgb 16.7 g/dL (13.5-18.0) 02/04/19 04:26 Hct 47.5 % (42.0-54.0) 02/04/19 04:26 MCV 91.5 fL (80.0-100.0) 02/04/19 04:26 MCH 32.1 pg (27.0-34.0) 02/04/19 04:26 MCHC 35.1 g/dL (33.0-35.0) H 02/04/19 04:26 RDW 14.2 % (11.6-16.5) 02/04/19 04:26 Plt Count 166 X10^3/uL (150.0-450.0) 02/04/19 04:26 MPV 8.1 fL (7.4-11.0) 02/04/19 04:26 Neut % (Auto) 75.7 % (42.0-75.0) H 02/04/19 04:26 Lymph % (Auto) 14.6 % (21.0-51.0) L 02/04/19 04:26 [place] % (Auto) 7.8 % (0.0-13.0) 02/04/19 04:26 Eos % (Auto) 1.6 % (0.9-2.9) 02/04/19 04:26 Baso % (Auto) 0.3 % (0.2-1.0) 02/04/19 04:26 Neut # (Auto) 7.6 x10^3/uL (2.2-4.8) H 02/04/19 04:26 Lymph # (Auto) 1.5 X10^3/uL (1.3-2.9) 02/04/19 04:26 [place] # (Auto) 0.8 x10^3/uL (0.3-0.8) 02/04/19 04:26 Eos # (Auto) 0.2 x10^3/uL (0.0-0.2) 02/04/19 04:26 Baso # (Auto) 0.0 X10^3/uL (0.0-0.1) 02/04/19 04:26 Absolute Nucleated RBC 0.1 /100WBC 02/04/19 04:26 Sample Site Rr 02/01/19 14:07 ABG pH 7.410 (7.35-7.45) 02/01/19 14:07 ABG pCO2 47.0 mmHg (35.0-45.0) H 02/01/19 14:07 ABG pO2 63.0 mmHg (80.0-100.0) L 02/01/19 14:07 ABG HCO3 29.8 mmol/L (22-26) H 02/01/19 14:07 ABG O2 Saturation 92.0 % (90-100) 02/01/19 14:07 ABG Base Excess 4.3 mmol/L (-2.0-2.0) H 02/01/19 14:07 Wan Test Pos 02/01/19 14:07 A-a Gradient 106.0 mmHg 02/01/19 14:07 FiO2 32.0 02/01/19 14:07 Blood Gas Comments Ricky well cb 02/01/19 14:07 Sodium 137 mmol/L (136-145) 02/04/19 04:26 Corrected Sodium TNP 02/04/19 04:26 Potassium 3.9 mmol/L (3.5-5.1) 02/04/19 04:26 Chloride 100 mmol/L (98-107) 02/04/19 04:26 Carbon Dioxide 27.8 mmol/L (21-32) 02/04/19 04:26 BUN 10 mg/dL (7-18) 02/04/19 04:26 Creatinine 0.99 mg/dL (0.70-1.30) 02/04/19 04:26 Est GFR (MDRD) Af Amer > 60 (>60) 02/04/19 04:26 Est GFR (MDRD) Non-Af > 60 (>60) 02/04/19 04:26 Glucose 102 mg/dL (65-99) H 02/04/19 04:26 Calcium 9.0 mg/dL (8.5-10.1) 02/04/19 04:26 Corrected Calcium TNP 02/04/19 04:26 Magnesium 2.6 mg/dL (1.7-2.9) 02/03/19 04:18 Total Bilirubin 0.80 mg/dL (0.2-1.0) 02/04/19 04:26 AST 24 Units/L (15-37) 02/04/19 04:26 ALT 24 Units/L (12-78) 02/04/19 04:26 Alkaline Phosphatase 97 Units/L (46-116) 02/04/19 04:26 Creatine Kinase 94 Units/L (39-308) 01/31/19 11:20 CK-MB (CK-2) 1.3 ng/mL (0-4.0) 01/31/19 11:20 CK/CKMB % Calc 1.4 % (<4) 01/31/19 11:20 Troponin I < 0.02 ng/mL (0-1.5) 01/31/19 11:20 Total Protein 7.7 g/dL (6.4-8.2) 02/04/19 04:26 Albumin 3.7 g/dL (3.4-5.0) 02/04/19 04:26 Globulin 4.0 g/dL (2.5-4.5) 02/04/19 04:26 Albumin/Globulin Ratio 0.9 Ratio (1.1-2.1) L 02/04/19 04:26 Triglycerides 55 mg/dL (0-150) 01/31/19 05:18 Cholesterol 166 mg/dL (0-200) 01/31/19 05:18 LDL Cholesterol, Calc 113 mg/dL (0-100) H 01/31/19 05:18 HDL Cholesterol 42 mg/dL (40-60) 01/31/19 05:18 Cholesterol/HDL Ratio 4.0 (0.0-5.0) 01/31/19 05:18 Specimen Type Random urine 01/31/19 14:51 Urine Color Yellow (YELLOW) 01/31/19 14:51 Urine Appearance Clear (CLEAR) 01/31/19 14:51 Urine pH 5.0 (5.0 - 8.0) 01/31/19 14:51 Ur Specific [place] 1.020 (1.000-1.030) 01/31/19 14:51 Urine Protein 2+ (NEGATIVE) 01/31/19 14:51 Urine Glucose (UA) Negative (NEGATIVE) 01/31/19 14:51 Urine Ketones Negative (NEGATIVE) 01/31/19 14:51 Urine Occult Blood Negative (NEGATIVE) 01/31/19 14:51 Urine Nitrite Negative (NEGATIVE) 01/31/19 14:51 Urine Bilirubin Negative (NEGATIVE) 01/31/19 14:51 Urine Urobilinogen 1+ (NORMAL) 01/31/19 14:51 Ur Leukocyte Esterase 1+ (NEGATIVE) 01/31/19 14:51 Urine RBC 0-2 /HPF (NONE SEEN) 01/31/19 14:51 Urine WBC None seen /HPF (NONE SEEN) 01/31/19 14:51 Ur Squamous Epith Cells Rare /HPF (NEGATIVE) 01/31/19 14:51 Amorphous Sediment Trace /HPF (NEGATIVE) 01/31/19 14:51 Urine Bacteria Negative /HPF (NEGATIVE) 01/31/19 14:51 Urine Mucus Moderate /HPF (NEGATIVE) 01/31/19 14:51 Ur Culture Indicated? No/not indicated 07/14/19 14:51 - Assessment and Plan 1: blunt trauma Rt chest with rib Fx. Rt pneumothorax (stable). CAD and previous SC s/p stenting . chronic back pain with degenerative disc disease . 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 smoker . obtain ambulatory Puls ox. Pt could be discharged and will follow in the office in early next week . repeat chest xray in two days . 2: PVD and intermittent claudication . 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
== END 2019-02-04 14:00 | disposition home or self-care (01) ==
LOC: ER 21:40 → ICU 21:40
PROVIDERS: ADMIT Internal Medicine; ATTEND Internal Medicine
DX: I74.09 Other arterial embolism and thrombosis of abdominal aorta; R07.89 Other chest pain; Z79.01 Long term (current) use of anticoagulants; R26.89 Other abnormalities of gait and mobility; W18.39XA Other fall on same level, initial encounter; I25.10 Atherosclerotic heart disease of native coronary artery without angina pectoris; J93.9 Pneumothorax, unspecified; J44.9 Chronic obstructive pulmonary disease, unspecified; M51.36 Other intervertebral disc degeneration, lumbar region; I73.89 Other specified peripheral vascular diseases; I10 Essential (primary) hypertension; S22.41XA Multiple fractures of ribs, right side, initial encounter for closed fracture; Y92.89 Other specified places as the place of occurrence of the external cause; R06.02 Shortness of breath
CPT/HCPCS: 36415; 36600; 71010; 71045; 71260; 72131; 80053; 80061; 81001; 82550; 82553; 82803; 83735; 84484; 85025; 93005; 94640; 96365; 96374; 96375; 97110; 97116; 97162; 97166; 97535; 99284; A4216; A4222; G0378; J1170; J1650; J1940; J1956; J2270; J2405; J7040; J7050; J7620